=== PATIENT | male | born 1970 | race African-American/Black ===

== ENCOUNTER 2019-04-19 12:16 | Emergency (ER) | payer OTHER ==
[2019-04-19 12:21] VITALS: BP 150/96; PULSE 105; TEMP 98.6; BMI 30.2
--- NOTE | 2019-04-19 12:39 | PDOC ---
History of Present Illness - General Chief Complaint: Injury Stated Complaint: RT LWR LEG PAIN Time Seen by Provider: 04/19/19 12:23 - History of Present Illness Initial Comments: 04/19/19 12:35 48 y/o M with L ankle pain after running during a drill while working out playing football Past History - Past Medical History Allergies/Adverse Reactions: Allergies Allergy/AdvReac Type Severity Reaction Status Date / Time No Known Allergies Allergy Verified 04/19/19 12:18 Home Medications: Ambulatory Orders No Home Medications 0 mg PO DAILY 12/16/13 Oxycodone HCl/Acetaminophen [Percocet 5-325 mg Tablet -] 1 tab PO Q4H #20 tablet 12/16/13 Penicillin V Potassium [Pen Vee K -] 500 mg PO QID #40 tablet 12/16/13 COPD: No Thyroid Disease: No - Immunization History Immunization Up to Date: Yes - Suicide/Smoking/Psychosocial Hx Smoking History: Current every day smoker Number of Cigarettes Smoked Daily: 5 Information on smoking cessation initiated: No Hx Alcohol Use: No Drug/Substance Use Hx: Yes ([facility]) Substance Use Type: None Review of Systems - Review of Systems Musculoskeletal: Yes: Joint Pain *Physical Exam - Vital Signs Last Vital Signs Temp Pulse Resp BP Pulse Ox 98.6 F 105 H 18 150/96 99 04/19/19 12:18 04/19/19 12:18 04/19/19 12:18 04/19/19 12:18 04/19/19 12:18 - Physical Exam Comments: 04/19/19 12:36 L ankle skin color and temperature are normal No plantar flexion, palpable defect in achillies +Coats test No gross sensory deficits Medical Decision Making - Medical Decision Making 04/19/19 12:37 POsterior splint in plantar flexion applied NWB w crutches f/u with ortho sensory intact after splint moves toes 04/19/19 12:39 *DC/Admit/Observation/Transfer Diagnosis at time of Disposition: Achilles rupture, left - Discharge Dispostion Disposition: HOME Condition at time of disposition: Stable Decision to Admit order: No - Referrals Referrals: Jozef Snow DO [Staff Physician] - - Patient Instructions Printed Discharge Instructions: Achilles Tendon Rupture Additional Instructions: Non weight bearing with crutches, Tylenolo only for pain as directed Follow up with orthopedic surgery in 1-2 days without fail. Return to the ER for worsening symptoms - Post Discharge Activity
== END 2019-04-19 12:58 | disposition home or self-care (01) ==
LOC: JERFT 12:16
PROC: 2W3RX1Z Immobilization of Left Lower Leg using Splint (ICD-10-PCS; principal; 2019-04-19)
DX: S86.012A Strain of left Achilles tendon, initial encounter (principal); X58.XXXA Exposure to other specified factors, initial encounter; Y93.61 Activity, american tackle football; Y92.321 Football field as the place of occurrence of the external cause
CPT/HCPCS: 99282-25

== ENCOUNTER 2021-03-15 15:23 | Emergency (ER) | payer OTHER ==
[2021-03-15 15:48] VITALS: BMI 28.4
[2021-03-15] MEDS ORDERED: KETOROLAC TROMETHAMINE 60 MG/2 ML VIAL IM ONE (17:26)
[2021-03-15] MEDS ORDERED: KETOROLAC TROMETHAMINE 60 MG/2 ML VIAL ONE (17:30)
[2021-03-15 17:47] VITALS: BP 179/93; PULSE 79; TEMP 98.2
== END 2021-03-15 18:09 | disposition home or self-care (01) ==
LOC: JERFT 15:23
PROC: 3E0233Z Introduction of Anti-inflammatory into Muscle, Percutaneous Approach (ICD-10-PCS; principal; 2021-03-15)
DX: M54.5 Low back pain (principal); I10 Essential (primary) hypertension
CPT/HCPCS: 96372; 99284-25